=== PATIENT | male | born 1955 | race Caucasian/White ===

== ENCOUNTER 2025-02-24 23:27 | Emergency (ER) | payer MEDICAID, SELFPAY ==
[2025-02-24 23:48] VITALS: BP 171/84; PULSE 48; RESP 16; TEMP 36.8; O2SAT 98; BMI 30.7
[2025-02-25] VITALS (8 sets, daily range): BP systolic 134–165; BP diastolic 73–88; PULSE 47–53; RESP 10–17; O2SAT 94–98
--- NOTE | 2025-02-25 00:33 | CRLHL7_ITS ---
For Patients: As a result of the Century Cures Act, medical imaging exams and procedure reports are released immediately into your electronic medical record. You may view this report before your referring provider. If you have questions, please contact your health care provider. INDICATION: Dizziness. TECHNIQUE: CT head without contrast. COMPARISON: None. FINDINGS: CSF spaces: Within normal limits for age. Brain parenchyma: The rudd-white differentiation is maintained. No sign of mass, hemorrhage, or midline shift. Skull base and calvarium: The visualized paranasal sinuses and mastoid air cells demonstrate no acute or significant findings. The visualized orbits are grossly unremarkable. No skull fractures. IMPRESSION: No acute intracranial abnormality. Please note that all CT scans at this facility use dose modulation, iterative reconstruction, and/or weight-based dosing when appropriate to reduce radiation dose to as low as reasonably achievable. Dictated by Marcos Verdugo MD @ 02/25/2025 1:02:04 AM (Electronically Signed)
--- NOTE | 2025-02-25 00:35 | ED.GENADULT ---
HPI - General Adult General Chief complaint: Hypertension Stated complaint: high blood pressure Time Seen by Provider: 02/25/25 00:01 Source: patient and family Mode of arrival: ambulatory Limitations: language barrier ([employer] used) History of Present Illness HPI narrative: 69-year-old male presents to the emergency department with episode of room spinning style dizziness. Despite multiple to specific questions, he will not disclose how long the symptoms lasted. Started at approximately 7:20 p.m. while he was eating dinner. Reports that he was eating, and asymptomatic. He got up to get another glass of water and sat back down and continued eating. When he went to clear his plate, he felt the sensation of room spinning. It lasted pretty strongly for about an hour. And then he vomited and felt quite a bit better though he will not quantify the amount for me. He cannot quantify urine with specific questioning whether symptoms were better with movement, lying down, turning his head a certain way. He did not try any interventions to help with symptoms. Things did get better after vomiting, there was no blood. He has had no diarrhea, abdominal pain, headache or fever. There has been no recent injury or trauma. He does tell me lengthy stories about how he painted a room yesterday with oil-based paint and he thinks that this could be correlated. He had a similar episode the left severe about 3 months ago that was not investigated by medical care. Reports that he does get dizzy when he stands up too quickly sometimes. Reports that his brothers and sisters told him that this was okay. He states that his significant other checked his blood pressure and pulse after he vomited which is about an hour after onset of symptoms today and told him that his pulse was in the mid 40s. He denies any focal weakness or other stroke-like symptoms. There was no noted facial droop, confusion, speech changes, difficulty walking or difficulty moving his limbs. Reports that he is completely asymptomatic now at the time of my exam but cannot quantify for me what time his symptoms started. Onset was about 4.5 hours prior to arrival. No recent anticoagulants. No history of seizure or neurological disorder. Uncertain what his pulse typically runs, does not regularly follow with a physician or receive any medical care. Has been told that the dentist that his blood pressure runs high sometimes but has not quantify this with any studies. Reports that his past medical history is benign, denies major long-term health problems, no prior surgeries. No medications, no allergies. Nonsmoker. Denies significant alcohol intake. ROS is notable for the dizziness, bradycardia noted at home. Otherwise benign times 12 systems. Related Data Home Medications ?Medication ?Instructions ?Recorded ?Confirmed No Known Home Medications 02/24/25 02/24/25 Allergies Allergy/AdvReac Type Severity Reaction Status Date / Time No Known Drug Allergies Allergy Verified 02/24/25 23:50 PFSH PFSH Social History Smoking Status: Never smoker Non-prescribed substance use: denies use Exam Const: Vital Signs, click to edit/add: Vital Signs - 24 hr 02/24/25 23:48 02/25/25 00:07 02/25/25 00:17 Temperature 98.2 F Pulse Rate 49 L 53 L Pulse Rate [Pulse Oximeter] 48 L Respiratory Rate 16 16 14 Blood Pressure 152/87 H 165/88 H Blood Pressure [Ri ght Upper Arm] 171/84 H Pulse Oximetry 98 98 96 Oxygen Delivery Me thod Room Air 02/25/25 00:32 02/25/25 01:02 02/25/25 01:17 Temperature Pulse Rate 53 L 49 L 49 L Pulse Rate [Pulse Oximeter] Respiratory Rate 16 17 13 Blood Pressure 159/85 H 147/87 H 145/73 H Blood Pressure [Ri ght Upper Arm] Pulse Oximetry 96 95 95 Oxygen Delivery Me thod 02/25/25 01:32 02/25/25 01:47 02/25/25 02:02 Temperature Pulse Rate 47 L 50 L 50 L Pulse Rate [Pulse Oximeter] Respiratory Rate 11 L 10 L 11 L Blood Pressure 145/76 H 143/78 H 134/80 Blood Pressure [Ri ght Upper Arm] Pulse Oximetry 97 95 94 Oxygen Delivery Me thod Documenting provider has reviewed patient's vital signs: yes Common normals: no apparent distress, oriented x3 and alert General appearance: cooperative and well kempt HENMT: Common normals: normocephalic, moist oral mucous membranes and oropharynx normal Head and scalp: normocephalic Face and sinus: normal facial exam Mouth: oral and palatal mucosa normal Throat: posterior oropharynx normal Eye: Common normals: conjunctivae normal General eye: normal appearance of both eyes Conjunctiva: conjunctiva(e) normal Neck & C-Spine: Common normals: full ROM and no lymphadenopathy General: normal visual inspection Resp: Common normals: normal respiratory effort, no use of accessory muscles and clear to auscultation bilaterally Effort & inspection: able to speak in complete sentences Auscultation: clear to auscultation bilaterally Cardio: Common normals: regular rate, regular rhythm, S1 normal heart sound, S2 normal heart sound and no murmurs Rate: regular rate Rhythm: regular rhythm Heart sounds: S1 normal and S2 normal GI: Common normals: Normal to inspection, nondistended, normoactive bowel sounds present, soft to palpation, non-tender, no hepatosplenomegaly and no masses Palpation: soft and no hepatosplenomegaly Back & Pelvis: Common normals: thoracic and lumbar spine normal to inspection Extremity: Common normals: normal to inspection, full ROM and normal capillary refill Neuro: Common normals: oriented x3, CN's II-XII intact bilaterally, moves all extremities and no sensory deficits noted Sensorium/orientation: alert Coordination/balance: Normal rapid alternating movements of the distal upper extremity present (Neuro) and Normal rapid alternating movements of the distal lower extremity present (Neuro) Speech: speech normal Motor exam: strength 5/5 throughout, no pronator drift, no tremor noted, muscle tone normal throughout and no movement abnormalities noted Coordination: rapid alternating movement UE normal and rapid alternating movement LE normal Psych: Common normals: thought process normal Appearance: well kempt Attitude: engaged Activity/motor behavior: appropriate eye contact Mood and affect: euthymic mood Thought process: normal thought process Attention/concentration: attention grossly intact Memory/cognition: memory grossly intact Insight: insight good Skin: Common normals: no rashes or lesions noted General skin exam: no rashes or lesions noted Course Course ED Course: 69-year-old male with dizziness, seems vertigo related on exam and story but confounding bradycardia of uncertain etiology. Likely chronic. Counseled patient on thoughts and findings. Asymptomatic at this time. Recommended cardiac workup. EKG, child monitor, troponin, electrolytes, basic blood work. I do recommend head CT because of the positional symptoms that he has been experiencing lately. His will likely also benefit from Holter monitor outpatient and may require pacemaker placement if he is having persistent spells of symptomatic bradycardia. At this time, symptoms have resolved. Will monitor closely. Reevaluation(s) Reevaluation #1: Update: CT is reassuring. Patient was watched on the monitor continuously. He showed no signs of arrhythmia but did have bradycardia as low as 45 for a spot was typically right around 50. He remains asymptomatic. Remainder of his labs look reassuring. He is counseled regarding all of these findings. Since he has been having some dizzy spells with posture and the symptoms today. It is difficult to tell if the bradycardia is contributory or if this is a classic simple benign vertigo. He is reported to have nystagmus in triage, but did not exhibit did for me but he was asymptomatic by the time of my exam. We were quite busy and even though he was seen immediately at the start of my shift, he had been waiting for an hour. Counseled patient that I think we need more information but I have gathered all that I really can in the emergency department in the middle of the night, on a weekend. I recommended that he make a follow-up appointment with a primary care doctor as soon as possible. I have recommended that he have a Holter monitor placed and he consider doing an echo also. It is okay to use [id number] meclizine for symptoms but I am not confident that that will necessarily be helpful. We did briefly discuss benign positional vertigo the not comfortable calling that his diagnosis until we have more information on the heart. Alarm symptoms were reviewed that would warrant ED presentation. He verbalizes understanding and agreement. His significant other states that she will help him schedule need outpatient encounters. Instructed to bring the paperwork provided here today with him for that outpatient visits so that our rationale and recommendations can be found quickly. Vital Signs Vital signs: Initial Vital Signs Temperature 98.2 F 02/24/25 23:48 Temperature Source Temporal Artery Scan 02/24/25 23:48 Pulse Rate 48 L 02/24/25 23:48 Respiratory Rate 16 02/24/25 23:48 Blood Pressure 171/84 H 02/24/25 23:48 Blood Pressure Mean 113 H 02/24/25 23:48 Blood Pressure Position Sitting 02/24/25 23:48 Pulse Oximetry 98 02/24/25 23:48 Oxygen Delivery Method Room Air 02/24/25 23:48 Vital Signs Temperature 98.2 F 02/24/25 23:48 Pulse Rate 48 L 02/24/25 23:48 Respiratory Rate 16 02/24/25 23:48 Blood Pressure 171/84 H 02/24/25 23:48 Pulse Oximetry 98 02/24/25 23:48 Oxygen Delivery Method Room Air 02/24/25 23:48 Temperature 98.2 F 02/24/25 23:48 Pulse Rate 50 L 02/25/25 02:02 Respiratory Rate 11 L 02/25/25 02:02 Blood Pressure 134/80 02/25/25 02:02 Pulse Oximetry 94 02/25/25 02:02 Oxygen Delivery Method Room Air 02/24/25 23:48 Medical Decision Making Lab Data Lab results reviewed: Yes I reviewed the patient's lab results Labs: Lab Results 02/25/25 02/25/25 02/25/25 Range/Units 00:42 00:48 00:56 WBC 11.70 H (4.50-11.00) K/uL RBC 4.46 (4.30-5.90) m/uL Hgb 13.0 L (13.5-17.5) gm/dL Hct 39.9 (37.0-53.0) % MCV 90 (80-100) fL MCH 29 (26-34) pg MCHC 33 (32-36) gm/dL RDW Coeff of Abdoul 13.6 (11.5-15.5) % Plt Count 227 (140-440) K/uL Neut % (Auto) 88.8 H (42.0-72.0) % Lymph % (Auto) 7.0 L (20-44) % [place] % (Auto) 3.2 (0.0-11.0) % Eos % (Auto) 0.3 (0.0-7.0) % Baso % (Auto) 0.4 (0.0-3.0) % Neut # (Auto) 10.40 H (1.7-7.0) K/uL Lymph # (Auto) 0.80 L (0.90-2.90) K/uL [place] # (Auto) 0.40 (0.00-0.90) K/UL Eos # (Auto) 0.00 (0.00-0.50) K/uL Baso # (Auto) 0.00 (0.00-0.30) K/uL Abs Immat Gran (auto) 0.00 (0.00-0.30) K/uL Imm/Tot Granulo (auto) 0.3 % Sodium 136 (135-149) mmol/L Potassium 4.0 (3.6-5.1) mmol/L Chloride 103 (96-114) mmol/L Carbon Dioxide 25 (20-32) mmol/L Anion Gap 8 (7-15) mEq/L BUN 20 (7-30) mg/dL Creatinine 0.6 (0.5-1.5) mg/dL Estimated Creat Clear 54.60 Estimated GFR 105 ml/min Glucose 135 H (60-115) mg/dL Calcium 8.8 (8.4-10.6) mg/dL Total Bilirubin 0.4 (0.1-1.5) mg/dL AST 31 (12-35) U/L ALT 22 (4-50) U/L Alkaline Phosphatase 65 (40-150) U/L Troponin I < 0.01 (0.01-0.04) ng/mL C-Reactive Protein < 0.5 L (0.5-1.0) mg/dL NT-Pro-B Natriuret Pep 22 (See Note) pg/mL Total Protein 7.4 (6.0-8.3) g/dL Albumin 4.1 (3.3-5.0) g/dL Urine Color Yellow (Yellow) Urine Appearance Slightly Cloudy A (Clear) Urine pH 7.0 (5.0-8.5) Ur Specific [place] 1.020 (1.000-1.030) Urine Protein Trace A (Negative) Urine Glucose (UA) Negative (Negative) Urine Ketones Negative (Negative) Urine Blood Trace-intact A (Negative) Urine Nitrite Negative (Negative) Urine Bilirubin Negative (Negative) Urine Urobilinogen 1.0 (0.2-1.0) Ur Leukocyte Esterase Negative (Negative) Urine RBC 0-2 (0-2) Urine WBC 0-2 (0-5) Ur Squamous Epith Cells Few (None-Few) Amorphous Sediment Few A (None) Urine Bacteria Few A (None) POC Troponin I 0.00 L (0.01-0.04) ng/ml Imaging Data CT scan - head: Attestation: I have reviewed the pertinent imaging results. My impression: Normal head CT. No mass effect, no tumor, no area of old stroke Radiologist's impression: IMPRESSION: No acute intracranial abnormality. ECG Data Attestation: I personally reviewed and interpreted this ECG as follows: Prior ECG tracings: not available for review Interpretation: Sinus bradycardia with a rate of 49. Intervals and axis are otherwise normal. No significant ST or T-wave abnormalities. Other than the bradycardia, normal EKG. Discharge Plan Discharge Clinical Impression: Dizziness Patient Disposition: Home w/ Parent or Adult Condition: Improved Instructions: Dizziness (ED) Additional Instructions: As we discussed, your blood work and head CT are reassuring today. There are no signs of brain tumor, stroke, electrolyte abnormality, dehydration, infection or anemia. This is all great news. We do notice that your heart rate is borderline low. We did not see any evidence of an abnormal heart rhythm here in the emergency department but this could have been contributing at the time when you were having more symptoms. Your heart rate is slow enough to warrant further investigation but not slow enough for any type of emergent intervention overnight. We do need to gather more information about your heart rate and rhythm. I would recommend that you have a Holter monitor placed to monitor your heart rate in your every day life. These are typically left on for a couple of days, up to a few weeks at sometimes. They can be ordered by your primary care doctor because they need to be ordered by a provider that can receive the results and follow-up on them. I would also recommend an echo which is an ultrasound of the heart. If the show abnormalities, your provider would most likely refer you to a shelf filler. If this is all found to be normal, your episodes could certainly be triggered by traditional vertigo like we discussed. That tends to happen as the brain ages and is triggered by many different things. It is okay to use [id number] meclizine, also sold as Dramamine nondrowsy if you become symptomatic in the future. If you have stroke-like symptoms or persistent neurological changes, I would recommend re-evaluation in the emergency room. Please bring this paperwork with you to the primary care appointment that you schedule to help them understand what tests were performed and what is now recommended. [place] comentamos, avery an?lisis de armaan y la tomograf?a computarizada de otoniel de hoy son tranquilizadores. No hay signos de tumor cerebral, accidente cerebrovascular, anomal?a electrol?megan, deshidrataci?n, infecci?n ni anemia. Son excelentes noticias. Observamos que greene frecuencia card?lyssa est? en el l?mite inferior. No observamos ninguna evidencia de ritmo card?aco anormal en urgencias, leela esto podr?a juli contribuido a que presentara m?s s?ntomas. [place] frecuencia card?lyssa es lo suficientemente lenta primitivo para justificar donnell investigaci?n m?s exhaustiva, leela no lo suficiente primitivo para realizar donnell intervenci?n de emergencia stephan la noche. Necesitamos recopilar m?s informaci?n sobre greene frecuencia y ritmo card?acos. Le recomiendo que se coloque un monitor Holter para controlar greene frecuencia card?lyssa en greene zain diaria. Estos suelen dejarse puestos stephan un par de d?as, e incluso algunas semanas. Greene m?dico de cabecera puede solicitarlos, ya que deben ser solicitados por un profesional que pueda recibir los resultados y realizar un seguimiento. Tambi?n recomendar?a donnell ecograf?a, que es donnell ecograf?a del coraz?n. Si muestra anomal?as, lo m?s probable es que greene m?dico le derive a un cardi?logo. Si todo esto resulta normal, avery episodios podr?an estar provocados por el v?rtigo tradicional, primitivo comentamos. [place] suele ocurrir con el envejecimiento cerebral y se desencadena por diversos factores. No hay problema en usar meclizina sin receta, tambi?n conocida primitivo Dramamine (antisomnoliento), si presenta s?ntomas en el futuro. Si presenta s?ntomas similares a los de un derrame cerebral o cambios neurol?gicos persistentes, le recomiendo donnell reevaluaci?n en urgencias. Lleve esta documentaci?n a greene tyler de atenci?n primaria para que comprendan qu? pruebas se realizaron y qu? se recomienda ahora. Si todo esto resulta normal, avery episodios podr?an estar desencadenados por el v?rtigo tradicional, primitivo comentamos. [place] suele ocurrir con el envejecimiento cerebral y se desencadena por diversos factores. Puede usar meclizina de venta yvonne, tambi?n conocida primitivo Dramamine (que no produce somnolencia), si presenta s?ntomas en el futuro. Activity Level: No Restrictions Discharge Diet: Regular Prescriptions: No Action No Known Home Medications Follow Up/Referrals: Provider,Not a Local [Primary Care Provider, Family Practice] Stand Alone Forms: [place] Info Instructions
--- OUTSIDE RECORDS SUMMARY | 2025-02-25 00:45 | XMS_ITS | Clinical Summary ---
Author Organization [facility] Address [address] [place] [address] Care Team Providers Care Scalloper Name Role Phone Unavailable Primary Care Provider Unavailabl e Source Comments PLEASE NOTE, if this patient is a minor, it may be UNLAWFUL to discuss sensitive information that is contained in these records (such as FAMILY PLANNING, MENTAL HEALTH or SUBSTANCE ABUSE) with the minor patient's parent or other person without the patient's specific authorization.[facility] Allergies No known active allergies Medications No known medications Active Problems Problem Noted Date Diagnosed Date Dental crowns present 03/15/2022 Social History Tobacco Use Types Packs/Day Years Used Date Smoking Tobacco: Never Smokeless Tobacco: Never Social Connections Answer Date Recorded Connectedness 0 04/05/2024 Financial Resource Strain Answer Date R ecorded Financial Resource Strain 0 2020 Stress Answer Date Recorded Stress 0 05/18/2021 Physical Activity Answer Date Recorded Physical Activity 0 05/18/2021 Food Insecurity Answer Date Recorded Food 0 04/19/2024 Transportation Needs Answer Date Record ed Transportation 0 05/18/2021 Housing Stability Answer Date Recorded Housing 0 05/18/2021 Safety and Environment Answer Date Taye rded Safety 0 05/18/2021 Utilities Answer Date Recorded Utilities 0 05/18/2021 Employment Answer Date Recorded Stress 0 04/05/2024 Sex and Gender Information Value Date Recorded Sex Assigned at Not on file Legal Sex Male 11:46 AM PDT Gender Identity Male 05/19/2021 7:31 AM PDT Sexual Orientation Not on file Last Filed Vital Signs Vital Sign Reading Time Taken Comments Blood Pressure 137/79 12/01/2022 12:38 PM CDT Pulse 67 12/01/2022 12:38 PM CDT Temperature - - Respiratory Rate - - Oxygen Saturation - - Inhaled Oxygen Concentration - - Weight - - Height - - Body Mass Index - - Plan of Treatment Health Maintenance Due Date Last Done Comments Diabetes Screening 1955 Hepatitis C Screening 1956 Lipid Screening 1956 Tobacco Screening 1956 Imm-DTaP/Tdap/Td (1 - Tdap) 1975 CT Colonography 2001 Colonoscopy 2001 Colorectal Cancer Screening 2001 FIT/gFOBT 2001 Fecal DNA 2001 Flexible Sigmoidoscopy 2001 Imm-Pneumococcal 50+ (1 of 1 - PCV) 2006 Imm-Zoster, Recombinant (1 of 2) 2006 Falls Prevention 2021 Dental Prophy 09/04/2022 09/02/2021 Hypertension Screening (#1) 12/01/2023 [id number] ( season) 03/25/202411/13/ 021, 10/15/2020 Alcohol and Drug Screen 07/25/2024 Depression Annual Screen 07/25/2024 Imm-Influenza (#1) 2025 Procedures Procedure Name Priority Date/Time Associated Diagnosis Comments PROPHYLAXIS - ADULT Routine 09/02/2021 8:00 AM CS T Chronic periodontitis from Last 3 Months or Most Recently Relevant to Health Maintenance
--- OUTSIDE RECORDS SUMMARY | 2025-02-25 00:45 | XMS_ITS | Encounter Summary ---
Author Organization [facility] Address [address] [place] [address] Care Team Providers Care Cold Roll Operator Name Role Phone Unavailable Primary Care Provider Unavailabl e Encounter Details Date Type Department Care Team (Late st Contact Info) Description 05/18/2021 Dental Interim Note [place] [id number] [address] [place] [id number] Max Dan DDS Social History Tobacco Use Types Packs/Day Years Used Date Smoking Tobacco: Never Assessed Social Connections Answer Date Recorded Social Connections and Isolation 0 05/18/2021 Financial Resource Strain Answer Date R ecorded Financial Resource Strain 0 2020 Stress Answer Date Recorded Stress 0 05/18/2021 Physical Activity Answer Date Recorded Physical Activity 0 05/18/2021 Food Insecurity Answer Date Recorded Food 0 05/18/2021 Transportation Needs Answer Date Record ed Transportation 0 05/18/2021 Housing Stability Answer Date Recorded Housing 0 05/18/2021 Safety and Environment Answer Date Taye rded Safety 0 05/18/2021 Utilities Answer Date Recorded Utilities 0 05/18/2021 Employment Answer Date Recorded Employment 0 05/18/2021 Sex and Gender Information Value Date Recorded Sex Assigned at Not on file Legal Sex Male 11:46 AM PDT Gender Identity Male 05/19/2021 7:31 AM PDT Sexual Orientation Not on file COVID-19 Exposure Response Date Recorded In the last month, have you been in contact with someone who was confirmed or suspected to have Coronavirus / COVID-19? No / Unsure 05/19/2021 9:16 AM PDT documented as of this encounter Plan of Treatment Not on file documented as of this encounter Procedures Procedure Name Priority Date/Time Associated Diagnosis Comments 29 O AMALGAM - WISDOM (NON BILLABLE) Routine 05/18/2021 12:00 AM CDT 30 O AMALGAM - WISDOM (NON BILLABLE) Routine 05/18/2021 12:00 AM CDT 31 CHARANJIT AMALGAM - WISDOM (NON BILLABLE) Routine 05/18/2021 12:00 AM CDT 3 MOB COMPOSITE - WISDOM (NON BILLABLE) Routine 04/23/2021 12:00 AM CDT documented in this encounter Visit Diagnoses Diagnosis Caries Unspecified dental caries documented in this encounter
[2025-02-25 00:56] LABS: Troponin, Point-of-Care* 0.00 ng/ml (0.01-0.04)
[2025-02-25 00:59] LABS: Hematocrit 39.9 % (37.0-53.0); Hemoglobin* 13.0 gm/dL (13.5-17.5); Immature Granulocytes Pct Auto 0.3 %; Mean Corpuscular HGB Conc 33 gm/dL (32-36); Mean Corpuscular Hemoglobin 29 pg (26-34); Mean Corpuscular Volume 90 fL (80-100); RDW Coefficient of Variation % 13.6 % (11.5-15.5); Red Blood Count 4.46 m/uL (4.30-5.90); White Blood Count* 11.70 K/uL (4.50-11.00)
[2025-02-25 01:00] LABS: Appearance Urine Slightly Cloudy (Clear)
[2025-02-25 01:05] LABS: Immature Granulocytes Abs Auto 0.00 K/uL (0.00-0.30); Lymphocytes Absolute Auto 0.80 K/uL (0.90-2.90); Slide Review Reflex No
[2025-02-25 01:11] LABS: Chloride* 103 mmol/L (96-114)
[2025-02-25 01:12] LABS: Albumin* 4.1 g/dL (3.3-5.0); Potassium* 4.0 mmol/L (3.6-5.1); Sodium* 136 mmol/L (135-149)
[2025-02-25 01:14] LABS: Blood Urea Nitrogen* 20 mg/dL (7-30); Creatinine* 0.6 mg/dL (0.5-1.5); Est. Creatinine Clearance* 54.60; Estimated Glomerular Filt Rate 105 ml/min
[2025-02-25 01:15] LABS: Alanine Aminotransferase* 22 U/L (4-50); Alkaline Phosphatase* 65 U/L (40-150); Anion Gap 8 mEq/L (7-15); Aspartate Amino Transferase* 31 U/L (12-35); Bilirubin Total* 0.4 mg/dL (0.1-1.5); Calcium* 8.8 mg/dL (8.4-10.6); Carbon Dioxide* 25 mmol/L (20-32); Glucose* 135 mg/dL (60-115); Total Protein* 7.4 g/dL (6.0-8.3)
[2025-02-25 01:28] LABS: NT Pro B Type NatriureticPept* 22 pg/mL (See Note)
== END 2025-02-25 02:42 | disposition home or self-care (01) ==
PROVIDERS: Emergency Provider Family Medicine
DX: R42 Dizziness and giddiness (principal)
CPT/HCPCS: 36415; 70450; 80053; 81001; 81003; 83880; 84484; 85025; 86140; 87086; 93005; 99284; 99285